=== PATIENT | male | born 1970 | race Caucasian/White ===

== ENCOUNTER 2018-11-23 08:27 | Inpatient (IN) | payer BC, OTHER ==
[2018-11-23 09:25] LABS: Hemoglobin 14.4 g/dL (14.0-18.0); Mean Corpuscular HGB CONC 30.9 g/dL (32.0-36.0); Mean Corpuscular Hemoglobin 24.1 pg (27.0-31.0); Mean Corpuscular Volume 77.9 fL (78.0-98.0); Red Blood Cell (RBC) Count 5.99 mill/uL (4.70-6.10); White Blood Cell (WBC) Count 18.1 thou/uL (4.8-10.8)
--- NOTE | 2018-11-23 09:42 | RAD ---
XR Shoulder Lt 3 View STANDARD History: [Pain] Comparison: None. Findings: No acute fracture or malalignment. Moderate degenerative disease acromioclavicular joint. V isualized ribs are intact. Impression: No acute abnormality
[2018-11-23 09:44] LABS: ALT (SGPT) 36 U/L (8-55); AST (SGOT) 47 U/L (5-34); Alkaline Phosphatase 169 U/L (40-150); Anion Gap 12 mmol/L (10-20); BUN (Urea Nitrogen) 8 mg/dL (8.9-20.6); Calc. Creatinine Clearance 0 mL/min (70-130); Calcium 9.6 mg/dL (7.8-10.44); Carbon Dioxide 26 mmol/L (22-29); Chloride 97 mmol/L (98-107); Estimated GFR-MDRD Greater than 90; Globulin 3.3 g/dL (2.4-3.5); Glucose 114 mg/dL (70-105); Potassium 4.1 mmol/L (3.5-5.1); Protein, Total 7.3 g/dL (6.0-8.3); Sodium 131 mmol/L (136-145)
[2018-11-23 09:50] LABS: Band 12 % (5-11); Hypochromia SLIGHT = 6-15 cells (100X) (0-5/hpf); Lymphocytes 2 % (21-51); MDiff Complete? YES; Mean Platelet Volume 9.4 fL (7.4-10.4); Metamyelocyte 3 % (0-0); Microcytosis SLIGHT = 6-15 cells (100X) (0-5/hpf); Monocytes 5 % (0-10); Myelocyte 2 % (0-0); Neutrophil 75 % (42-75); Ovalocytes SLIGHT = 2-5 cells (100X) (0-1/hpf); Platelet Count 503 thou/uL (130-400); Platelet Morphology Comment Appears Increased; Polychromasia SLIGHT = 2-3 cells (100X) (0-2/hpf); Reactive Lymphocytes 1 % (0-10); Tear Drops SLIGHT = 2-5 cells (100X) (0-1/hpf)
[2018-11-23 10:07] LABS: CKMB 1.3 ng/mL (0-6.6)
[2018-11-23] MEDS ORDERED: Sodium Chloride 0.9% 100 ML ONE (10:18)
[2018-11-23] MEDS ORDERED: Azithromycin 500 MG VIAL ONE (10:18)
[2018-11-23] MEDS ORDERED: Aspirin Chewable 81 MG TAB ONE (10:18)
[2018-11-23] MEDS ORDERED: Ketorolac Tromethamine 30 MG/ML VIAL ONE (10:18)
[2018-11-23] MEDS ORDERED: cefTRIAXone\\ROCEPHIN 2 GM VIAL ONE (10:18)
--- NOTE | 2018-11-23 12:00 | CT ---
Exam: CT angiogram of the chest HISTORY: Chest pain. Elevated d-dimer. COMPARISON: None TECHNIQUE: CT angiogram of the chest is performed in the axial plane. Three-dimensional reformatted i mages are submitted for interpretation FINDINGS: Mediastinum: No mass, lymphadenopathy or hematoma. HEART: Normal size. No significant pericardial fluid. Aorta: Thoracic and upper abdominal aorta have a normal caliber. No periaortic fat stranding. Upper solid abdominal viscera: Splenomegaly with a wedge-shaped hypodensities. Possible splenic infar cts is raised appears slightly complex free fluid in the left and right paracolic gutter. Refer to separate abdomen report for further detail Trachea and central bronchi: Patent Pleural spaces: Small bilateral effusions Lung parenchyma: Patchy groundglass opacities in the dependent atelectatic changes, nonspecific. Pneumothorax: None Osseous structures: No lytic or blastic lesions Pulmonary arteries: Adequate contrast opacification pulmonary arterial system to the level of proxima l lobar arteries. No filling defect to suggest pulmonary embolism IMPRESSION: 1. Splenomegaly. Possible splenic infarcts. 2. Ascites. 3. No evidence of pulmonary artery embolism to the level of the proximal lobar arteries.
--- NOTE | 2018-11-23 12:22 | CT ---
ABDOMEN AND PELVIC CT SCAN WITH IV CONTRAST: HISTORY: Cough and shoulder pain. Shortness of breath. Fever. FINDINGS: Small left pleural effusion. Minimal linear chronic changes in the lung bases as well as some parenc hymal change in the lingula and right middle lobe. Small, 0.3 cm diameter subpleural nodule in the r ight lateral chest. There is evidence for scattered ascites in the abdomen and pelvis. Hepatomegaly. Probable small con tracted gallbladder. Massive splenomegaly measuring 23 cm in anterior posterior dimension. Evidence for varices in the upper abdomen. Somewhat wedge-shaped abnormal low-attenuation changes within the spleen, evidence for multiple splenic infarcts. No renal hydronephrosis or acute obstruction. C olonic diverticulosis without acute diverticulitis. Minimal nonspecific mesenteric fat stranding whi ch may represent some generalized mesenteric edema in association with the ascites. IMPRESSION: Massive splenomegaly with abnormal low attenuation with an appearance most consistent with multiple s plenic infarcts. Hepatomegaly without ductal dilatation. Evidence for multiple upper abdominal vari víctor. Scattered ascites with some mesenteric nonspecific but probably edematous fat stranding. Small left pleural effusion. There are some borderline-sized lymph nodes in the gastrohepatic ligament re gion as well as one minimally enlarged lymph node in the lateral aspect of the right pericardial fat. POS: [facility]
[2018-11-23 13:55] LABS: Troponin I 0.066 ng/mL (< 0.028)
[2018-11-23] MEDS ORDERED: Ondansetron PF 4 MG/2 ML Vial IVP PRN ×2 (14:38→15:26)
[2018-11-23] MEDS ORDERED: Sodium Chloride 0.9% 1,000 ML IV SCH (14:38)
[2018-11-23 14:39] VITALS: BMI 28.3
[2018-11-23] MEDS: Sodium Chloride 0.9% 1,000 ML IV SCH (15:38)
--- NOTE | 2018-11-23 17:19 | ULT ---
ULTRASOUND ABDOMEN LIMITED: (RIGHT UPPER QUADRANT) DATE: 11/23/2018 HISTORY: Right upper quadrant pain FINDINGS: Gallbladder: Contracted and therefore difficult to evaluate. No pericholecystic fluid. Liver: Normal parenchymal echogenicity. Right kidney: No hydronephrosis. Pancreas: Obscured by shadowing from bowel gas. Common duct caliber: 2 mm. IMPRESSION: 1) Contracted gallbladder. 2) pancreas not visualized.
[2018-11-23] MEDS: traMADol HCl 50 MG TAB PO PRN (20:54)
[2018-11-23] MEDS: Rivaroxaban 10 MG TAB PO SCH (20:54)
[2018-11-23] MEDS: Famotidine/PF 20 mg/2ml Vial SLOW IVP SCH (20:54)
--- NOTE | 2018-11-24 01:42 | HP ---
CHIEF COMPLAINT: Left shoulder pain and cough x1 week. HISTORY OF PRESENT ILLNESS: The patient is a very pleasant 48-year-old male with a history of polycythemia vera, currently not on any medication except for Xarelto 10 mg daily, who presented to the hospital with complaints of cough and left shoulder pain. The patient stated that about 3 weeks ago, he started having a cough with some clear sputum production. He denied any chills, however, had some subjective fevers. The patient stated that about 2 weeks ago, he started having left shoulder pain. The patient also states that he has been lifting heavy boxes at his work, which is usual for him. The patient denies any chest pain or chest tightness. However, does complain of some shortness of breath on exertion, which is a little unusual for him compared to his baseline. The patient denies any orthopnea or PND. The patient comes in today due to worsening shortness of breath on exertion. PAST MEDICAL HISTORY: He has a history of polycythemia vera about 2 years ago. He has a history of DVT in his right leg. PAST SURGICAL HISTORY: Denies. SOCIAL HISTORY: He is a telephone mechanic. He denies any smoking history, however, does have a history of alcohol use 12 pack a day, however, stopped about 2 years ago. Denies any drug use. He lives with his and he is a full code. FAMILY HISTORY: Significant for cancer and his uncle had CAD. MEDICATIONS: He is on Xarelto 10 mg daily. ALLERGIES: HE HAS NO KNOWN DRUG ALLERGIES. REVIEW OF SYSTEMS: All negative except for the ones mentioned above in the HPI. PHYSICAL EXAMINATION: VITAL SIGNS: Temperature of 97.9, respirations of 18, saturations 97% on room air, pulse of 99, and blood pressure 157/90. GENERAL: He is awake, alert, and oriented x3. Does not appear to be in distress. HEENT: Normocephalic, atraumatic. No lymphadenopathy noted. Pupils are equal and reactive to light. CV: S1 and S2 present. No murmurs, rubs, or gallops. LUNGS: Clear to auscultation. No rhonchi or wheezes noted. ABDOMEN: Soft and nontender. Bowel sounds present x2. He has significant splenomegaly on palpation. SKIN: He has significant tattooing all over. No cuts, lesions, or bruises noted. MUSCULOSKELETAL: He does have some pain on palpation to the anterior aspect of his shoulder. NEUROVASCULAR: No focal deficits noted. He is moving all 4 extremities. LABORATORY RESULTS: As of the following; WBC of 18.1, hemoglobin of 14.4, hematocrit of 46.7, platelets of 503, bands of 12. Chemistries; sodium of 131, potassium of 4.1, BUN of 8, creatinine of 0.85. AST of 47, ALT of 36, bilirubin of 2, mildly elevated troponins of 0.062 and 0.066. His BNP is elevated at 101. IMAGING STUDIES: He had a CTA, which did not indicate any acute PE, however, does indicate some slight splenomegaly and some mild ascites. He did have a CT of abdomen and pelvis, which indicated massive splenomegaly with abnormal low attenuation appearance most consistent with multiple splenic infarcts. He also has hepatomegaly without any duct dilation. He also has abdominal varices and also some enlarged lymph nodes and also some mesenteric fat stranding. ASSESSMENT AND PLAN: The patient is a very pleasant 48-year-old male who presents to the hospital with left shoulder pain and shortness of breath. 1. Shortness of breath, could be secondary to cardiac in nature versus pneumonia versus pulmonary embolism. However, CTA was negative for pulmonary embolism. I do not believe this is pneumonia. The patient has no infiltrates on a CT scan. I will go ahead and just cover him prophylactically for now. He does have leukocytosis, but that could be secondary to the polycythemia vera or which is myeloproliferative disease. I will also consult Oncology. I will trend his troponins x3. I will order an echocardiogram. His BNP is mildly elevated. Most likely, I will probably do a stress test on him in the morning versus getting a cardiology consult. 2. Splenic infarct. The patient is unaware of this. The patient is currently on Xarelto. He really never had pain in his left shoulder and his left shoulder pain could be attributed to the splenic infarct versus musculoskeletal related. 3. Left shoulder pain. I will put the patient on some pain medication and also on some Flexeril to help with his muscular pain. 4. History of deep venous thrombosis. We will continue his prophylaxis, which is Xarelto only 10 mg on a daily basis. 5. Leukocytosis, most likely secondary to his polycythemia vera. Job ID: [id number]
[2018-11-24] MEDS: traMADol HCl 50 MG TAB PO PRN (02:56)
[2018-11-24 06:49] LABS: Anion Gap 12 mmol/L (10-20); BUN (Urea Nitrogen) 9 mg/dL (8.9-20.6); Calc. Creatinine Clearance 158 mL/min (70-130); Calcium 8.5 mg/dL (7.8-10.44); Carbon Dioxide 22 mmol/L (22-29); Chloride 103 mmol/L (98-107); Estimated GFR-MDRD Greater than 90; Glucose 80 mg/dL (70-105); Potassium 4.2 mmol/L (3.5-5.1); Sodium 133 mmol/L (136-145)
[2018-11-24 06:50] LABS: #Basophils 0.1 thou/uL (0.0-0.2); #Eosinphils 0.1 thou/uL (0.0-0.7); #Lymphocytes 1.2 thou/uL (1.20-3.40); #Monocytes 1.7 thou/uL (0.11-0.59); #Neutrophils 12.9 thou/uL (1.40-6.50); %Basophils 0.6 % (0.0-1.0); %Eosinophils 0.6 % (0.0-10.0); %Lymphocytes 7.5 % (21.0-51.0); %Monocytes 10.5 % (0.0-10.0); %Neutrophils 80.7 % (42.0-75.0); Hemoglobin 12.7 g/dL (14.0-18.0); Large Platelets SLIGHT; MDiff Complete? YES; Mean Corpuscular HGB CONC 31.2 g/dL (32.0-36.0); Mean Corpuscular Hemoglobin 24.5 pg (27.0-31.0); Mean Corpuscular Volume 78.4 fL (78.0-98.0); Mean Platelet Volume 9.3 fL (7.4-10.4); Platelet Count 500 thou/uL (130-400); Platelet Morphology Comment Appears Increased; RBC Distribution Width 18.2 % (11.5-14.5); Red Blood Cell (RBC) Count 5.18 mill/uL (4.70-6.10)
[2018-11-24 08:24] LABS: Troponin I 0.094 ng/mL (< 0.028)
[2018-11-24] MEDS: Famotidine/PF 20 mg/2ml Vial IVPB SCH (10:07)
[2018-11-24] MEDS: cefTRIAXone\\ROCEPHIN 1 GM in Sodium Chloride 0.9% 100 ML IVPB SCH (10:26)
[2018-11-24] MEDS: Famotidine/PF 20 mg/2ml Vial SLOW IVP SCH ×2 (10:26→20:22)
[2018-11-24 11:15] LABS: Troponin I 0.068 ng/mL (< 0.028)
--- NOTE | 2018-11-24 12:59 | PDOC.PN ---
- Subjective Encounter Start Date: 11/24/18 Encounter Start Time: 10:30 Subjective: pt up in bed still has left shoulder pain - Objective Resuscitation Status - Order Detail: 11/23/18 15:26 Resuscitation Status Routine Resuscitation Status: FULL: Full Resuscitation MAR Reviewed: Yes Vital Signs & Weight: Vital Signs (12 hours) Temp Pulse Resp BP Pulse Ox 11/24/18 08:00 97.9 F 69 18 127/73 94 L 11/24/18 04:00 98.3 F 78 18 126/64 92 L Weight Admit Weight 209 lb 1.6 oz Weight 209 lb 1.6 oz I&O: 11/23/18 11/24/18 11/25/18 06:59 06:59 06:59 Intake Total 1753 Output Total 1000 Balance 753 Result Diagrams: 11/24/18 05:24 11/24/18 05:24 Phys Exam - Physical Examination Neck: no nodes, no JVD, supple, full ROM Respiratory: no wheezing, clear to auscultation bilateral Cardiovascular: RRR, no significant murmur, no rub, gallop, irregular Gastrointestinal: soft, non-tender, no distention, positive bowel sounds mild pain on palpation Dx/Plan (1) SOB (shortness of breath) Code(s): R06.02 - SHORTNESS OF BREATH Status: Acute (2) Left shoulder pain Code(s): M25.512 - PAIN IN LEFT SHOULDER Status: Acute (3) Polycythemia vera Code(s): D45 - POLYCYTHEMIA VERA Status: Acute (4) Splenic infarct Code(s): D73.5 - INFARCTION OF SPLEEN Status: Acute (5) Elevated troponin Code(s): R74.8 - ABNORMAL LEVELS OF OTHER SERUM ENZYMES Status: Acute - Plan cta negative for PE, will continue ppx abx -: will get stress test and echo due to elevated trops and sob -: will continue his xarelto -: will start pt on some flexeril and pain meds for shoulder pain -: which could be referred * . Review of Systems - Review of Systems Respiratory: negative: Cough, Dry, Shortness of Breath, Hemoptysis, SOB with Excertion, Pleuritic Pain, Sputum, Wheezing Cardiovascular: negative: chest pain, palpitations, orthopnea, paroxysmal nocturnal dyspnea, edema, light headedness, other Gastrointestinal: negative: Nausea, Vomiting, Abdominal Pain, Diarrhea, Constipation, Melena, Hematochezia, Other - Medications/Allergies Allergies/Adverse Reactions: Allergies Allergy/AdvReac Type Severity Reaction Status Date / Time No Known Allergies Allergy Verified 11/23/18 14:45 Medications: Current Medications Famotidine (Pepcid) 20 mg SLOW IVP Q12HR [facility] Last Admin: 11/24/18 10:26 Dose: Not Given Famotidine (Pepcid) 20 mg IVPB DAILY [facility] Last Admin: 11/24/18 10:07 Dose: 20 mg Sodium Chloride (Normal Saline 0.9%) 1,000 mls @ 50 mls/hr IV .Q20H [facility] Last Admin: 11/23/18 15:38 Dose: Not Given Azithromycin 500 mg/ Sodium (Chloride) 250 mls @ 250 mls/hr IVPB Q24HR [facility] Ceftriaxone Sodium 1 gm/ (Sodium Chloride) 100 mls @ 200 mls/hr IVPB Q24HR [facility] Last Admin: 11/24/18 10:26 Dose: 100 mls Ondansetron HCl (Zofran) 4 mg IVP Q6H PRN PRN Reason: Nausea/Vomiting Rivaroxaban (Xarelto) 10 mg PO HS [facility] Last Admin: 11/23/18 20:54 Dose: 10 mg Tramadol HCl (Ultram) 50 mg PO Q6H PRN PRN Reason: Moderate Pain (4-6) Last Admin: 11/24/18 02:56 Dose: 50 mg
[2018-11-24] MEDS ORDERED: Cyclobenzaprine 10 MG TAB PO PRN (13:00)
[2018-11-24] MEDS: Azithromycin 500 MG in Sodium Chloride 0.9% 250 ML 250 ML IVPB SCH (14:37)
--- NOTE | 2018-11-24 14:37 | NM ---
NM Cardiac Stress W EF WF History: [Chest pain] Comparison: None. Findings: Stress and rest performed after the intravenous administration of 28.5 and 9.5 mCi techneti um 99m sestamibi, respectively. Adequate left ventricular uptake of radiotracer. No scar or ischemia. Normal cardiac wall motion. Normal ejection fraction of 70%. Impression: Normal cardiac stress test and ejection fraction.
[2018-11-24] MEDS: Sodium Chloride 0.9% 1,000 ML IV SCH (14:50)
[2018-11-24] MEDS ORDERED: ADENOSINE 60 MG/20 ML VIAL ONE (20:07)
[2018-11-24] MEDS: Rivaroxaban 10 MG TAB PO SCH (20:22)
--- NOTE | 2018-11-24 22:55 | CON ---
DATE OF CONSULTATION: HISTORY OF PRESENT ILLNESS: This is a 48-year-old male who has diagnosed polycythemia vera, JAK2 positive when he presented with DVT involving right lower extremity. He had elevated hemoglobin and has been managed with phlebotomy. He did not require phlebotomy during the past 6 months. For DVT, he was initially treated with Lovenox and subsequently changed over to Xarelto 20 mg a day and currently he is on 10 mg a day. The patient came with pain the left upper quadrant of the abdomen and lower left chest. This has been going on for a week, but did become a lot worse recently. He also developed shortness of breath, which might be related to inability to take deep breaths. The patient also had left shoulder pain. His pain is improving and he is on tramadol on p.r.n. basis. The patient has been mostly afebrile in the hospital except for 1 temperature of 100.4. CURRENT MEDICATIONS: Azithromycin, ceftriaxone, flexeril, famotidine, Zofran, Xarelto and Ultram. PAST HISTORY: Negative except for DVT. FAMILY HISTORY: Mother had colon cancer. PERSONAL AND SOCIAL HISTORY: The patient does not smoke and used to drink 12-pack alcohol daily, but quit 2 years ago. He denies of drug use. He lives with his . DRUGS WITH ADVERSE EFFECT: None. REVIEW OF SYSTEMS: As mentioned in the history of present illness. PHYSICAL EXAMINATION: GENERAL: The patient appears appropriate for age and is alert and oriented. VITAL SIGNS: Temperature 98.3, pulse 80, blood pressure 147/82. Pain score 2-4 today. HEENT: Unremarkable. EYES: Extraocular movements intact. Pupils equal in size. NECK: No thyromegaly. LYMPH NODES: Not palpable in cervical, supraclavicular, axillary and inguinal areas. SKIN: No petechiae. No purpuric spots. CHEST: No deformity. LABORATORY DATA: CBC shows WBC of 16,000 with hemoglobin of 12.7 and platelet count of 500. Differential showed 75% neutrophils, 12 bands, 7.5% lymphocytes, 10.5% monocytes, 3% metamyelocytes and 2% myelocytes have been reported. Peripheral smear reports polychromasia, teardrop cells and ovalocytes. His chemistry profile shows elevated bilirubin of 2, AST 47 and alkaline phosphatase 169. IMAGING STUDIES: CT angio of chest was negative for pulmonary embolism and did not show pneumonia. Chest x-ray was also reported normal. CT scan of abdomen and pelvis showed spleen to be massively enlarged 23 inches. There was small left pleural effusion. Hepatomegaly was also reported without mention of the size of the liver. abnormal low attenuation changes were noted in the spleen suggestive of multiple splenic infarcts. ASSESSMENT AND RECOMMENDATIONS: The most likely explanation for the patient's symptoms is splenic infarct with pain in the splenic area. This could have caused inability for the patient to take deep breath and the pain was referred to the left shoulder. Massive splenomegaly with presence of teardrop cells in peripheral blood raise the possibility of myelofibrosis. He should be continued on prophylactic doses that is 10 mg of Xarelto. The pain should be treated symptomatically. He could potentially be sent home tomorrow if his pain is under reasonable control. He needs to be seen in the office next week. He might need bone marrow to establish the diagnosis of myelofibrosis and may need to be started on agents like Jakafi. Thanks very much for asking me to participate in this patient's care. Job ID: [id number]
[2018-11-25] MEDS: Famotidine/PF 20 mg/2ml Vial IVPB SCH (08:36)
[2018-11-25] MEDS: cefTRIAXone\\ROCEPHIN 1 GM in Sodium Chloride 0.9% 100 ML IVPB SCH (09:17)
[2018-11-25 11:58] VITALS: BP 146/78; TEMP 97.1
[2018-11-25] MEDS: Azithromycin 500 MG in Sodium Chloride 0.9% 250 ML 250 ML IVPB SCH (11:59)
--- NOTE | 2018-11-25 20:41 | DIS ---
DATE OF ADMISSION: 11/23/2018 DATE OF DISCHARGE: 11/25/2018 DISCHARGE DIAGNOSES: 1. Multiple splenic infarcts secondary to #3. 2. Left shoulder pain secondary to referred pain from #1. 3. Polycythemia vera, on chronic Xarelto. 4. Dyspnea secondary to #1. CONSULTATIONS: Dr. Brown with Hematology Service. PERTINENT LAB AND X-RAY FINDINGS: Sodium ranged between 131 to 133, total bilirubin 2.0, AST 47, ALT of 36. Troponin I ranged between 0.062 to 0.094. BNP 102. CBC showed a white blood cell count ranged between 16.0 to 18.1, hemoglobin ranged between 12.7 to 14.4. D-dimer 9.81. Blood cultures x2 dated 11/23/2018, showed no growth at 48 hours. Respiratory virus panel PCR dated 11/23/2018, negative. CT of the abdomen and pelvis dated 11/23/2018, showed massive splenomegaly with multiple splenic infarcts. Multiple upper abdominal varices noted. Three views of the left shoulder dated 11/23/2018, showed no acute process. CT angiogram of the chest dated 11/23/2018, showed splenomegaly with splenic infarcts. Mild ascites noted. No evidence for pulmonary embolism. Abdominal ultrasound dated 11/23/2018, showed contracted gallbladder with nonvisualized pancreas. Pancreas obscured by bowel gas shadowing. Cardiolite stress test dated 11/24/2018, showed no evidence for reversible or fixed ischemia with calculated ejection fraction of 70%. 2D transthoracic echocardiogram dated 11/24/2018, showed ejection fraction 50% to 55%. Moderate left atrial enlargement. HOSPITAL COURSE: The patient was initially admitted after presenting with left shoulder pain with cough and dyspnea. The patient with a significant history of polycythemia vera, on chronic Xarelto 10 mg daily, presenting with left shoulder pain and cough with dyspnea. The patient underwent extensive evaluation including CT imaging of the abdomen and pelvis as well as CT angiogram of the chest showing evidence of massive splenomegaly with multiple splenic infarcts. The patient was evaluated by the Hematology Service given the patient's significant history of polycythemia vera with recommendations to continue anticoagulation with Xarelto. The patient also received pain medication for the left shoulder pain with overall improvement and symptomatology with conservative management. Current Hematology recommendations are for outpatient evaluation including possible bone marrow evaluation to rule out myelofibrosis. The patient did undergo cardiac evaluation due to the patient's symptoms and complaints in addition to elevated troponin I. Stress testing was negative as stated previously and telemetry monitoring showed a sinus mechanism without evidence of acute arrhythmia or dysrhythmia. Overall, the patient clinically stabilized with conservative management. I have examined the patient at the time of discharge and discussed followup instructions, at which point the patient verbalized understanding and in agreement. The patient overall clinically stable and ready for discharge on 11/25/2018. DISCHARGE MEDICATIONS: 1. Tramadol 50 mg p.o. q.6 hours p.r.n. pain, #20 with no refills. 2. Xarelto 10 mg 1 tablet p.o. daily. FOLLOWUP: The patient to follow up with his primary hospital admitting clerk, Dr. Kenn Solis within 7 days of discharge. CONDITION ON DISCHARGE: Fair. ACTIVITY: Ad-jun. DIET: Regular. SPECIAL INSTRUCTIONS: May return to light work duty on 11/28/2018. CODE STATUS: Full. DISPOSITION: Home on 11/25/2018. Job ID: [id number]
--- NOTE | 2018-11-26 07:49 | RAD ---
Exam: Chest one view HISTORY:Chest pain Comparison: None FINDINGS: Cardiac silhouette:Cardiomegaly. Pulmonary vessels: Normal Costophrenic angles: Costophrenic angles are clear. However, there is elevation of the left hemidiaph ragm. LUNGS: Interstitial opacities in the left lung base. Correlate for atelectasis. Pneumothorax: None Osseous abnormalities: None IMPRESSION: 1. Elevation of the left hemidiaphragm likely due to left lower lobe atelectasis. Correlate clinicall y.
[2018-11-26] MEDS ORDERED: Famotidine 20 MG TAB PO SCH (09:00)
--- NOTE | 2018-11-28 12:08 | STRESS ---
Acquisition Time: 2018-11-24 13:14:26 Total Exercise Time: 00:04:00 Test Indications: CHEST PAIN Medications: Protocol: ADENOSINE Max HR: 101 BPM 59% of Pred: 170 BPM Max BP: 132/070 mmHG Max Work Load: 1.0 METS RESTING ECG: NORMAL SINUS RHYTHM AT 76 BPM SYMPTOMS: NONE APPROPRIATE BP RESPONSE FOR ADENOSINE ECTOPY: NONE ECG STRESS: NO SIGNIFICANT CHANGES INTERPRETATION: INDETERMINATE/AWAIT NUCLEAR IMAGES FOR DEFINITIVE DIAGNOSIS Confirmed by PAWEL BENAVIDEZ ([id number]), sports editor JERRY GUZMAN ([id number]) on 11/28/2018 12:07:59 PM Referred By: Confirmed By:PAWEL BENAVIDEZ
== END 2018-11-25 15:00 | disposition home or self-care (01) | DRG 816 ==
LOC: ERS 08:27 → 2NO 12:54
PROVIDERS: ADMIT Internal Medicine; ATTEND Internal Medicine
DX: D73.5 Infarction of spleen (principal); D45 Polycythemia vera; R74.8 Abnormal levels of other serum enzymes; Z79.01 Long term (current) use of anticoagulants; Z86.718 Personal history of other venous thrombosis and embolism
CPT/HCPCS: 36415; 71045; 71275; 74177; 76705; 78452; 80048; 80053; 82553; 83880; 84484; 85025; 85379; 87040; 87633; 93005; 93017; 93306; 94640; 96361; 96365; 96367; 96375; A9500; J0153; J0456; J0696; J1885; J3490; J7050; J7620; S0028

== ENCOUNTER 2021-11-23 16:10 | Emergency (ER) | payer BC, OTHER ==
[2021-11-23] MEDS ORDERED: Proparacaine 0.5% Opth 15 ML BOT ONE (17:00)
[2021-11-23] MEDS ORDERED: Fluorescein Opthalmic Strip ONE (17:00)
== END 2021-11-23 17:40 | disposition home or self-care (01) ==
LOC: ERS 16:10
DX: S05.01XA Injury of conjunctiva and corneal abrasion without foreign body, right eye, initial encounter (principal); I10 Essential (primary) hypertension; X58.XXXA Exposure to other specified factors, initial encounter
CPT/HCPCS: 99283